=== PATIENT | male | born 1935 | race Caucasian/White ===

== ENCOUNTER → 2018-03-05 | Outpatient (CLI) | payer OTHER, BC | LOC: HYPER 02-24 14:09 | DX: E11.622 Type 2 diabetes mellitus with other skin ulcer (principal); L97.522 Non-pressure chronic ulcer of other part of left foot with fat layer exposed; I87.2 Venous insufficiency (chronic) (peripheral); E11.51 Type 2 diabetes mellitus with diabetic peripheral angiopathy without gangrene; I83.018 Varicose veins of right lower extremity with ulcer other part of lower leg; I89.0 Lymphedema, not elsewhere classified; I50.9 Heart failure, unspecified; J45.909 Unspecified asthma, uncomplicated; Z87.891 Personal history of nicotine dependence ==

== ENCOUNTER → 2018-03-12 | Outpatient (CLI) | payer OTHER, BC | LOC: HYPER 06:32 | DX: E11.622 Type 2 diabetes mellitus with other skin ulcer (principal); L97.811 Non-pressure chronic ulcer of other part of right lower leg limited to breakdown of skin; L97.522 Non-pressure chronic ulcer of other part of left foot with fat layer exposed; I83.018 Varicose veins of right lower extremity with ulcer other part of lower leg; E11.51 Type 2 diabetes mellitus with diabetic peripheral angiopathy without gangrene; I87.2 Venous insufficiency (chronic) (peripheral); I89.0 Lymphedema, not elsewhere classified; I50.9 Heart failure, unspecified; M20.42 Other hammer toe(s) (acquired), left foot; J45.909 Unspecified asthma, uncomplicated; Z87.891 Personal history of nicotine dependence ==

== ENCOUNTER → 2018-03-26 | Outpatient (CLI) | payer OTHER, BC | LOC: HYPER 06:56 | DX: E11.622 Type 2 diabetes mellitus with other skin ulcer (principal); I83.018 Varicose veins of right lower extremity with ulcer other part of lower leg; L97.812 Non-pressure chronic ulcer of other part of right lower leg with fat layer exposed; E11.51 Type 2 diabetes mellitus with diabetic peripheral angiopathy without gangrene; I87.2 Venous insufficiency (chronic) (peripheral); I50.9 Heart failure, unspecified; J45.909 Unspecified asthma, uncomplicated; M20.42 Other hammer toe(s) (acquired), left foot; Z87.891 Personal history of nicotine dependence ==